=== PATIENT | male | born 1980 | race Caucasian/White ===

== ENCOUNTER 2018-09-19 09:43 | Observation (INO) | payer BC ==
[2018-09-17 08:13] VITALS: BP 148/102
[2018-09-17 08:41] LABS: MICROSCOPIC NOT IND
[2018-09-17 08:43] LABS: BASOPHILS # (AUTO) 0.01 x10^3/uL (0-0.1); BASOPHILS % (AUTO) 0 % (0-1); EOSINOPHILS # (AUTO) 0.18 x10^3/uL (0-0.4); EOSINOPHILS % (AUTO) 3 % (1-7); LYMPHOCYTES # (AUTO) 0.95 x10^3/uL (1-3.4); LYMPHOCYTES % (AUTO) 13 % (22-44); MD NO; MEAN CORPUSCULAR HEMOGLOBIN 31.9 pg (27.5-34.5); MEAN CORPUSCULAR HGB CONC 33.7 g/dL (33.2-36.2); MEAN CORPUSCULAR VOLUME 94.7 fL (81-97); MEAN PLATELET VOLUME 8.1 fL (7.4-10.4); MONOCYTES # (AUTO) 0.58 x10^3/uL (0.2-0.8); MONOCYTES % (AUTO) 8 % (2-9); NEUTROPHILS # (AUTO) 5.37 x10^3/uL (1.8-6.8); NEUTROPHILS % (AUTO) 76 % (42-75); PLATELET COUNT 279 x10^3/uL (130-400); RED BLOOD COUNT 5.11 x10^6/uL (4.38-5.82); RED CELL DISTRIBUTION WIDTH 14.3 % (9.4-14.8)
[2018-09-17 08:45] LABS: CULTURE INDICATED? NO
[2018-09-17 08:51] LABS: INTERNATIONAL NORMALIZED RATIO 1.01 (0.93-1.1); PROTHROMBIN TIME 10.7 Seconds (9.6-11.5)
[2018-09-17 08:52] LABS: ALANINE AMINOTRANSFERASE 32 U/L (12-78); ANION GAP 6 mmol/L (5-15); CALCIUM 8.7 mg/dL (8.5-10.1); CHLORIDE 109 mmol/L (98-107); CREATININE 0.87 mg/dL (0.7-1.3)
[2018-09-17 08:55] LABS: ALKALINE PHOSPHATASE 66 U/L (45-117); BILIRUBIN,TOTAL 0.3 mg/dL (0.2-1.0)
[~2018-09-19] VITALS: Ht 182.9 cm; Wt 93.1 kg
[~2018-09-19 09:43] MED LIST: ALPR-475 PO; FLUO40CA9 PO; IBUP-1484 PO; OXYC-307 PO; SERT50TA PO
[2018-09-19] MEDS ORDERED: LACTATED RINGERS 1,000 ML IV SCH (10:05)
[2018-09-19] MEDS ORDERED: LIDOCAINE 1%-EPI 1:100K, 30ML ONE (11:17)
[2018-09-19] MEDS ORDERED: EPINEPHRINE 1 MG/ML, 1ML ONE (11:17)
[2018-09-19] MEDS ORDERED: BUPIVACAINE/PF 0.25% ONE (11:17)
[2018-09-19] MEDS ORDERED: THROMBIN 5,000 UNIT VIAL TP ONE (11:17)
[2018-09-19] MEDS ORDERED: VANCOMYCIN 1,000 MG ONE (11:17)
[2018-09-19] MEDS ORDERED: LIDOCAINE/PF 0.5% ,50ML ONE (11:46)
[2018-09-19] MEDS ORDERED: ONDANSETRON 2MG/ML, 2ML ONE (13:07)
[2018-09-19] MEDS ORDERED: METOCLOPRAMIDE 5 MG/ML, 2ML ONE (13:07)
[2018-09-19] MEDS ORDERED: PROPOFOL 10 MG/ML, 20ML ONE (13:07)
[2018-09-19] MEDS ORDERED: DEXAMETHASONE 4 MG/ML, 1ML ONE (13:07)
[2018-09-19] MEDS ORDERED: KETOROLAC 30 MG/1 ML ONE (13:07)
[2018-09-19] MEDS ORDERED: SUCCINYLCHOLINE 20 MG/ML, 10ML ONE (13:07)
[2018-09-19] MEDS ORDERED: CEFAZOLIN 1,000 MG ONE (13:07)
[2018-09-19] MEDS ORDERED: MIDAZOLAM 1 MG/ML, 2ML ONE ×2 (13:09→13:19)
[2018-09-19] MEDS ORDERED: FENTANYL PF 100 MCG/2ML ONE ×3 (13:10→15:17)
[2018-09-19] MEDS ORDERED: OXYcodone 5 MG/5 ML ORAL.SOL UDC ONE (15:17)
[2018-09-19] MEDS: FENTANYL PF 100 MCG/2ML IV PRN ×2 (15:20→15:25)
[2018-09-19] MEDS ORDERED: LABETALOL 5MG/ML, 20ML IV PRN (15:30)
[2018-09-19] MEDS ORDERED: DIAZEPAM 5 MG/ML, 2ML IVPush PRN (15:30)
[2018-09-19] MEDS ORDERED: MEPERIDINE/PF 25MG/0.5ML IVPush PRN (15:30)
[2018-09-19] MEDS ORDERED: MIDAZOLAM 1 MG/ML, 2ML IV PRN (15:30)
[2018-09-19] MEDS ORDERED: OXYcodone 5 MG/5 ML ORAL.SOL UDC PO PRN (15:30)
[2018-09-19] MEDS ORDERED: ONDANSETRON 2MG/ML, 2ML IVPush PRN (15:30)
[2018-09-19] MEDS: HYDROmorphone 1 MG/ML, 1ML IV PRN ×7 (15:35→16:20)
[2018-09-19] MEDS ORDERED: HYDROmorphone 2 MG/ML, 1ML ONE ×2 (15:36→16:01)
[2018-09-19] MEDS ORDERED: DIAZEPAM 5 MG TABLET PO PRN (19:00)
[2018-09-19] MEDS ORDERED: ONDANSETRON 2MG/ML, 2ML IV PRN (19:00)
[2018-09-19] MEDS: SODIUM CHLORIDE 0.45% 1,000 ML IV SCH (20:00)
[2018-09-19] MEDS: HYDROcodone/APAP 10/325 MG TABLET PO PRN ×2 (20:16→20:43)
[2018-09-19 20:17] VITALS: BP 145/94
[2018-09-19] MEDS: morphine SULFATE 10 MG/ML, 1ML IV PRN (21:45)
[2018-09-19 23:51] VITALS: BP 124/67
[2018-09-20] MEDS: OXYcodone/APAP 10/325MG TABLET PO PRN ×3 (01:44→11:31)
[2018-09-20 03:31] VITALS: BP 135/85
[2018-09-20] MEDS: morphine SULFATE 10 MG/ML, 1ML IV PRN (03:43)
[2018-09-20] MEDS: SODIUM CHLORIDE 0.45% 1,000 ML IV SCH (05:42)
[2018-09-20 07:11] VITALS: BP 132/85
[2018-09-20] MEDS ORDERED: ONDA4TAB7 PO (13:20)
[2018-09-20] MEDS ORDERED: CEPH-368 PO (13:21)
[2018-09-20] MEDS ORDERED: HYDR-3307 PO (13:24)
== END 2018-09-20 13:43 | disposition home or self-care (01) ==
LOC: OUT 09:43 → 4NOR 16:54 → OUT 22:26 → DCLOUNGE 09-20 13:25
PROVIDERS: ADMIT Orthopaedic Surgery Orthopaedic Surgery of the Spine; ATTEND Orthopaedic Surgery Orthopaedic Surgery of the Spine
DX: M51.26 Other intervertebral disc displacement, lumbar region (principal); F32.9 Major depressive disorder, single episode, unspecified; F41.9 Anxiety disorder, unspecified
CPT/HCPCS: 36415; 63030; 71046; 72100; 80053; 81003; 85025; 85610; 85730; 93005; 96374; 96376; G0378; J0171; J0330; J0690; J1100; J1170; J1885; J2001; J2250; J2270; J2405; J2704; J2765; J3010; J3360; J3370; J3490; J7120